=== PATIENT | male | born 2000 | race Caucasian/White ===

== ENCOUNTER 2020-08-31 22:24 | Emergency (ER) | payer OTHER ==
[2020-08-31 22:32] VITALS: BP 153/87; PULSE 73; TEMP 99.5; BMI 28.1
[2020-08-31] MEDS ORDERED: FLUORESCEIN NA 1 EA STRIP ONE (22:34)
[2020-08-31] MEDS ORDERED: TETRACAINE 0.5% OPHTH SOLN 2 ML BOTTLE ONE (22:34)
[2020-08-31] MEDS ORDERED: TOBRA 0.3%/DEXAMETH 0.1% OPHTHALMIC SUSP 2.5 ML BTL ONE (22:39)
[2020-08-31] MEDS ORDERED: DIPHTH,PERTUSS(ACELL),TET 0.5 ML DISP.SYRIN IM ONE ×2 (22:40)
[2020-09-01] MEDS ORDERED: TOBRA 0.3%/DEXAMETH 0.1% OPHTHALMIC SUSP 2.5 ML BTL OS SCH (10:00)
== END 2020-08-31 22:50 | disposition home or self-care (01) ==
LOC: FER 22:24
PROC: 3E0234Z Introduction of Serum, Toxoid and Vaccine into Muscle, Percutaneous Approach (ICD-10-PCS; principal; 2020-08-31)
DX: T15.92XA Foreign body on external eye, part unspecified, left eye, initial encounter (principal)
CPT/HCPCS: 90715; 99284-25